=== PATIENT | female | born 1980 | race Caucasian/White ===

== ENCOUNTER 2017-01-11 01:25 | Inpatient (IN) | payer OTHER ==
[2017-01-11] MEDS ORDERED: HOME MEDICATION LIST NEEDED 1 EA EACH MISC ONE (01:36)
[2017-01-11] MEDS ORDERED: LACTATED RINGERS 1,000 ML IV SCH ×2 (01:36→03:30)
[2017-01-11] MEDS ORDERED: LIDOCAINE HCL/PF 1% 30 ML VIAL SUBCUT PRN (01:36)
[2017-01-11] MEDS ORDERED: ONDANSETRON HCL 4 MG/2 ML VIAL IV PRN (01:36)
[2017-01-11] MEDS ORDERED: MISOPROSTOL 200 MCG TABLET PO PRN ×4 (01:36→03:30)
[2017-01-11] MEDS ORDERED: FENTANYL 100 MCG/2 ML VIAL IV PRN (01:36)
[2017-01-11] MEDS ORDERED: OXYTOCIN/NORMAL SALINE 30 UNIT/500 ML BAG IV SCH (01:36)
[2017-01-11] MEDS ORDERED: FENTANYL 100 MCG/2 ML VIAL IV ONE (01:36)
[2017-01-11 01:46] LABS: EOSINOPHILS 0.5 % (0.0-6.0); EOSINOPHILS# 0.1 X 10^3uL (0.0-0.4); MONOCYTES# 1.4 X 10^3uL (0.2-1.0)
[2017-01-11 01:48] LABS: BASOPHIL# 0.3 X 10^3uL (0.0-0.1); BASOPHILS 2.4 % (0.0-2.0); HEMATOCRIT 45.9 % (36.0-48.0); HEMOGLOBIN 15.7 g/dL (12.0-16.0); LYMPHOCYTES 17.5 % (20.0-40.0); LYMPHOCYTES# 2.5 X 10^3uL (0.8-3.8); MEAN CELL VOLUME 91.9 fL (80.0-100.0); MEAN CORPUS. HGB CONCENTRATION 34.2 g/dL (32.0-36.0); MEAN CORPUSCULAR HEMOGLOBIN 31.5 pg (29.0-35.0); MEAN PLATELET VOLUME 7.7 fL (7.4-10.4); MONOCYTES 9.9 % (2.0-10.0); NEUTROPHILS 69.7 % (54.0-75.0); NEUTROPHILS# 10.1 X 10^3uL (2.6-6.7); PLATELET COUNT 322 X 10^3uL (130-440); RED CELL DISTRIBUTION WIDTH 11.8 % (11.5-14.5); WHITE BLOOD COUNT 14.4 X 10^3uL (3.9-10.7)
[2017-01-11 02:14] LABS: ANTIBODY SCREEN NEGATIVE
--- NOTE | 2017-01-11 03:12 | PROCEDURE NOTE: Vaginal Del ---
OB Procedure Vaginal Delivery - Vaginal Delivery Estimated Gestational Age (weeks): 38 Delivery Presentation: vertex Delivery Position: JELLY Heart Monitor: category I Delivery Induction: none Amniotic Fluid: clear, SROM Delivery Monitor: external FHT, external uterine Delivery Method: Placenta delivered: yes Delivery Placenta: spontaneous Delivery Cord: 3 Vessels Nuchal Cord # of Loops: 1 (tight clamp and cut) Cord clamped: Yes Cord blood obtained: Yes Episiotomy: none Delivery Laceration: 2nd degree Suture Type for Laceration Repair: 3.0 Vicryl (No complications) at 1 minute: 8 at 5 minutes: 9 Infant Gender: Female Estimate Blood Loss Delivery: 200cc Anesthesia: None Patient tolerated procedure: well Delivery Complications: Present: none (No complications)
[2017-01-11] MEDS ORDERED: ACETAMINOPHEN/CODEINE 300/30MG 1 TAB TABLET PO PRN (03:30)
[2017-01-11] MEDS ORDERED: WITCH HAZEL 1 EACH MED..PAD TP PRN (03:30)
[2017-01-11] MEDS ORDERED: MAGNESIUM HYDROXIDE 30 ML UDC PO PRN (03:30)
[2017-01-11] MEDS ORDERED: DIPHENHYDRAMINE 25 MG CAPSULE PO PRN (03:30)
[2017-01-11] MEDS ORDERED: DOCUSATE SODIUM 100 MG CAPSULE PO SCH (03:30)
[2017-01-11] MEDS ORDERED: LANOLIN CREAM 1 APP/7 GM TUBE TOPICAL PRN (03:30)
[2017-01-11] MEDS ORDERED: BENZOCAINE/LANOLIN/ALOE 1 SPRAY BOTTLE TP PRN (03:30)
[2017-01-11] MEDS ORDERED: HC ACETATE/PRAMOXINE HCL FOAM 1 APPLIC APP RECTAL PRN (03:30)
[2017-01-11] MEDS: IBUPROFEN 600 MG TABLET PO PRN ×3 (04:23→17:21)
[2017-01-11] MEDS ORDERED: WITCH HAZEL 1 EACH MED..PAD TOPICAL PRN (05:02)
[2017-01-11] MEDS ORDERED: BENZOCAINE/LANOLIN/ALOE 1 SPRAY BOTTLE TOPICAL PRN (05:02)
[2017-01-11 07:31] VITALS: O2SAT 94
[2017-01-11] MEDS: DOCUSATE SODIUM 100 MG CAPSULE PO SCH ×2 (09:30→22:43)
[2017-01-11 11:22] VITALS: RESP 16
[2017-01-12 05:28] LABS: HEMATOCRIT 42.5 % (36.0-48.0); HEMOGLOBIN 14.3 g/dL (12.0-16.0)
--- NOTE | 2017-01-12 09:23 | PROGRESS NOTE:Vaginal Delivery ---
Assessment and Plan - Date of Encounter Date of Encounter: 01/12/17 - Time Spent With Patient Total time spent with greater than 50% in coordination of care (as documented) at patient's floor/unit and/or counseling patient: PROFESSIONAL DEVELOPMENT MANAGER: Bina Waldron Subjective Post- Day: 1 Patient reports: appetite normal, voiding normally, ambulating normally [place]: doing well, nursing well (Patient desires discharge today. Voiding as usual, bowel movement normal this am. Lochia is light. going well. Considering control options. VSS. Fundus firm. Ext negative. Labs reviewed. Home with precautions and follow up. All questions answered and all satisfied with this plan.) PROFESSIONAL DEVELOPMENT MANAGER: Bina Waldron Obj Exam - Latest Vital Signs and I&O Latest Vital Signs/I&O: Vital Signs Temp 36.3 C L 01/12/17 05:01 Pulse 67 01/12/17 05:01 Resp 16 01/12/17 05:01 BP 106/63 01/12/17 05:01 Pulse Ox 94 01/11/17 09:00 Intake & Output 01/11/17 01/12/17 01/12/17 17:59 05:59 17:59 Output Total 1350 Balance -1350 Output: Urine 1350 Other: Urine Appearance Clear Clear Urine Color Dark Red [place] Voiding Method Toilet Toilet # Voids 1 - Lab Labs: Laboratory Last Values WBC 14.4 X 10^3uL (3.9-10.7) H 01/11/17 01:30 RBC 5.00 X 10^6uL (4.20-6.10) 01/11/17 01:30 Hgb 14.3 g/dL (12.0-16.0) 01/12/17 05:15 Hct 42.5 % (36.0-48.0) 01/12/17 05:15 MCV 91.9 fL (80.0-100.0) 01/11/17 01:30 MCH 31.5 pg (29.0-35.0) 01/11/17 01:30 MCHC 34.2 g/dL (32.0-36.0) 01/11/17 01:30 RDW 11.8 % (11.5-14.5) 01/11/17 01:30 Plt Count 322 X 10^3uL (130-440) 01/11/17 01:30 MPV 7.7 fL (7.4-10.4) 01/11/17 01:30 Neutrophils % 69.7 % (54.0-75.0) 01/11/17 01:30 Lymphocytes % 17.5 % (20.0-40.0) L 01/11/17 01:30 Eosinophils % 0.5 % (0.0-6.0) 01/11/17 01:30 Basophils % 2.4 % (0.0-2.0) H 01/11/17 01:30 Neutrophils # 10.1 X 10^3uL (2.6-6.7) H 01/11/17 01:30 Lymphocytes # 2.5 X 10^3uL (0.8-3.8) 01/11/17 01:30 Monocytes 9.9 % (2.0-10.0) 01/11/17 01:30 Monocytes # 1.4 X 10^3uL (0.2-1.0) H 01/11/17 01:30 Eosinophils # 0.1 X 10^3uL (0.0-0.4) 01/11/17 01:30 Basophils # 0.3 X 10^3uL (0.0-0.1) H 01/11/17 01:30 Antibody Screen Negative 01/11/17 01:30
[2017-01-12 13:07] VITALS: BP 109/65; PULSE 72; TEMP 98.1
== END 2017-01-12 12:30 | disposition home or self-care (01) | DRG 775 ==
LOC: NLCPRO 01:25 → UNDOADMIN 01:27 → NLC 01:27
PROVIDERS: ADMIT Obstetrics & Gynecology; ATTEND Obstetrics & Gynecology
PROC: 10E0XZZ Delivery of Products of Conception, External Approach (ICD-10-PCS; principal; 2017-01-11)
PROC: 0KQM0ZZ Repair Perineum Muscle, Open Approach (ICD-10-PCS; principal; 2017-01-11)
DX: O70.1 Second degree perineal laceration during delivery (principal); Z3A.38 38 weeks gestation of pregnancy; Z37.0 Single live birth
CPT/HCPCS: 36415; 85014; 85018; 85025; 86850